=== PATIENT | male | born 1960 | race Caucasian/White ===

== ENCOUNTER 2023-11-04 17:54 | Emergency (ER) | payer MEDICARE, MEDICAID, SELFPAY ==
[2023-11-04 19:27] VITALS: BP 150/93; PULSE 90; RESP 18; TEMP 37.3; O2SAT 97; BMI 21.4
--- NOTE | 2023-11-04 19:33 | ED_ITS ---
HPI - Nausea/Vomiting/Diarrhea General Chief complaint: Nausea/Vomiting/Diarrhea Stated complaint: vomiting Related Data Allergies Allergy/AdvReac Type Severity Reaction Status Date / Time No Known Allergies Allergy Verified 11/04/23 19:28 [No Known Allergies*] [facility] Social History Social History Advance Directives: No Advance Directives Information Provided: No Do you have a plan to hurt others: No Plan Physical Exam 2 Vital Signs: Vital Signs: Last Vital Signs Temp 97.7 F 11/04/23 21:17 Pulse 78 11/04/23 21:17 Resp 16 11/04/23 21:17 BP 174/94 H 11/04/23 21:17 Pulse Ox 98 11/04/23 21:17 O2 Del Method Room Air 11/04/23 21:17 BMI result Body Mass Index 21.4 Course Course Course Narrative: Rapid medical exam performed by Treasure Freeman PA-C. 63-year-old male presents with nausea vomiting x1 day. Denies abdominal pain, diarrhea, fever, recent cough or cold symptoms, no known sick contacts with same symptoms. On exam, the patient's abdomen is soft, nondistended, nontender no guarding. He is well in appearance, hemodynamically stable. We will order screening labs, this is likely viral, we will give symptomatic care. Patient returns to the waiting room pending his full assessment. Reevaluation(s) Reevaluation #1: Patient left from the waiting room without completing their assessment Medical Decision Making Lab Data 11/04/23 19:38 11/04/23 19:38 Labs: Lab Results 11/04/23 Range/Units 19:38 WBC 14.0 H (4.8-10.8) X10*3/uL RBC 4.96 (4.60-5.80) X10*6/uL Hgb 16.1 (14.0-18.0) g/dl Hct 44.6 (42.0-52.0) % MCV 89.9 (80.0-98.0) fL MCH 32.5 (27.0-33.0) pg MCHC 36.1 H (31.0-36.0) g/dl RDW 12.7 (11.0-16.0) % Plt Count 162 (160-400) X10*3/uL MPV 10.7 (9.4-12.4) fL Immature Gran % (Auto) 0.6 H (0.0-0.4) % Neut % (Auto) 82.1 H (45-73) % Lymph % (Auto) 12.4 L (20-40) % [place] % (Auto) 4.7 (2-11) % Eos % (Auto) 0.1 (0-4) % Baso % (Auto) 0.1 (0-2) % Lymph # (Auto) 1.7 (1.2-4.9) X10*3/uL [place] # (Auto) 0.7 (0.1-1.2) X10*3/uL Eos # (Auto) 0.0 (0.0-0.4) X10*3/uL Baso # (Auto) 0.0 (0.0-0.2) X10*3/uL Abs Immat Gran (auto) 0.08 H (0.00-0.03) X10*3/uL Absolute Neuts (auto) 11.5 H (2.0-8.3) x10*3/uL Absolute Nucleated RBC 0.000 (0.0-0.012) X10*3/uL Nucleated RBC % (auto) 0.0 (0.0-0.2) /100WBC Sodium 131 L (135-145) mmol/L Potassium 3.7 (3.3-5.1) mmol/L Chloride 94 L (96-108) mmol/L Carbon Dioxide 26 (22-29) mmol/L Anion Gap 15 (12-20) BUN 22 H (9-16) mg/dL Creatinine 1.23 (0.5-1.4) mg/dL Estim Creat Clear Calc 55.7 Estimated GFR 59 Random Glucose 245 H (60-115) mg/dL Calcium 10.1 (8.4-10.2) mg/dL Magnesium 1.9 (1.6-2.6) mg/dL Total Bilirubin 1.3 H (0.0-1.0) mg/dL AST 89 H (5-37) U/L ALT 129 H (0-40) U/L Alkaline Phosphatase 93 (39-117) U/L Total Protein 10.8 H (6.5-8.0) g/dL Albumin 4.5 (3.5-5.0) g/dL Lipase 17 (8-78) U/L Discharge Plan Discharge Clinical Impression: Abdominal pain Patient Disposition: Left W/O Completing Treatment Discharge Date/Time: 11/05/23 00:32
[2023-11-04 19:42] LABS: MANUAL DIFF FLAG NO
[2023-11-04 19:43] LABS: Basophils Percent Auto 0.1 % (0-2); Eosinophils Percent Auto 0.1 % (0-4); Hematocrit 44.6 % (42.0-52.0); Hemoglobin 16.1 g/dl (14.0-18.0); Imm Gran Abs Auto 0.08 X10*3/uL (0.00-0.03); Imm Gran Pct Auto 0.6 % (0.0-0.4); Lymphocytes Absolute Auto 1.7 X10*3/uL (1.2-4.9); Lymphocytes Percent Auto 12.4 % (20-40); Mean Corpuscular HGB Conc 36.1 g/dl (31.0-36.0); Mean Corpuscular Hemoglobin 32.5 pg (27.0-33.0); Mean Corpuscular Volume 89.9 fL (80.0-98.0); Mean Platelet Volume 10.7 fL (9.4-12.4); Monocytes Absolute Auto 0.7 X10*3/uL (0.1-1.2); Monocytes Percent Auto 4.7 % (2-11); Neutrophils Absolute Auto 11.5 x10*3/uL (2.0-8.3); Neutrophils Percent Auto 82.1 % (45-73); Platelet Count 162 X10*3/uL (160-400); Red Blood Count 4.96 X10*6/uL (4.60-5.80); Red Cell Distribution Width 12.7 % (11.0-16.0)
[2023-11-04 20:03] LABS: Alanine Aminotransferase 129 U/L (0-40); Albumin Level 4.5 g/dL (3.5-5.0); Alkaline Phosphatase 93 U/L (39-117); Anion Gap 15 (12-20); Aspartate Amino Transferase 89 U/L (5-37); Bilirubin Total 1.3 mg/dL (0.0-1.0); Blood Urea Nitrogen 22 mg/dL (9-16); Calcium 10.1 mg/dL (8.4-10.2); Carbon Dioxide 26 mmol/L (22-29); Chloride 94 mmol/L (96-108); Creatinine Clr Calc Pharmacy 55.7; Estimated Glomerular Filt Rate 59; Glucose Random 245 mg/dL (60-115); Lipase 17 U/L (8-78); Magnesium 1.9 mg/dL (1.6-2.6); Potassium 3.7 mmol/L (3.3-5.1); Sodium 131 mmol/L (135-145); Total Protein 10.8 g/dL (6.5-8.0)
[2023-11-04 21:17] VITALS: BP 174/94; PULSE 78; RESP 16; TEMP 36.5; O2SAT 98
--- NOTE | 2023-11-05 00:32 | PC.NURSE ---
pt left without alerting staff, no answer when called for room
== END 2023-11-05 00:32 | disposition left against medical advice (07) ==
PROVIDERS: Physician Assistant Medical; Emergency Provider Emergency Medicine
DX: R11.2 Nausea with vomiting, unspecified (principal); R10.9 Unspecified abdominal pain; Z79.899 Other long term (current) drug therapy
CPT/HCPCS: 36415; 80053; 83690; 83735; 85025; 99281; 99283